=== PATIENT | female | born 1980 | race Caucasian/White ===

== ENCOUNTER 2016-09-23 19:38 | Emergency (ER) | payer MEDICARE, OTHER ==
[2016-09-23 21:02] VITALS: BP 128/78
--- NOTE | 2016-09-23 21:18 | ERNOTE ---
ENT HPI Date of Service: 09/23/16 Presenting Symptoms: other - Sore throat Time Seen by Provider: 09/23/16 21:08 Source: patient, family, RN notes reviewed Exam Limitations: no limitations - Immun/Allergies/Home Medications Immunizations: IMMUNIZATION HX Immunizations Up to Date Yes History of Influenza Vaccine More Information Required Hx Pneumococcal Vaccination Yes Allergies/Adverse Reactions: Allergies Allergy/AdvReac Type Severity Reaction Status Date / Time benzocaine Allergy Verified 05/28/15 07:55 prochlorperazine edisylate Allergy Verified 05/28/15 07:55 [From Compazine] prochlorperazine maleate Allergy Verified 05/28/15 07:55 [From Compazine] promethazine HCl Allergy Verified 05/28/15 07:55 [From Phenergan] Sulfa (Sulfonamide Allergy Verified 05/28/15 07:55 Antibiotics) [Sulfa(Sulfonamide Antibiotics)] Home Medications: HOME MEDICATIONS ALPRAZolam [Xanax] 0.5 mg PO QID PRN 06/27/12 [Last Taken Unknown] Calcitriol 1.25 mg PO DAILY 06/27/12 [Last Taken Unknown] LORazepam [Ativan] 0.5 mg PO QID PRN 06/27/12 [Last Taken Unknown] Levothyroxine Sodium [Levothyroxine (Synthroid)] 200 mcg PO DAILY 06/27/12 [ Last Taken Unknown] Liothyronine Sodium 5 mcg PO DAILY 06/27/12 [Last Taken Unknown] Octreotide Acetate [Sandostatin] 35 units PO DAILY 06/27/12 [Last Taken Unknown] Octreotide Acetate [Sandostatin] 65 units SQ BID 06/27/12 [Last Taken Unknown] Octreotide Acetate,Mi-Spheres [Sandostatin Lar] 30 mg IM Q30D 06/27/12 [Last Taken Unknown] Vandetanib 2 tab PO DAILY 06/27/12 [Last Taken Unknown] Cetirizine HCl [Zyrtec] 5 mg PO BID 08/26/12 [Last Taken Unknown] hydrOXYzine PAMOATE [Vistaril (Hydroxyzine Pamoate)] 25 mg PO TID 08/26/12 [ Last Taken Unknown] Tramadol HCl [Rybix Odt] 100 mg PO HS 04/16/13 [Last Taken Unknown] Calcitriol 1.5 mg IVP DAILY 09/10/13 [Last Taken Unknown] Azithromycin 250 mg PO DAILY #25 ml 09/23/16 [Last Taken Unknown] - History of Present Illness Narrative: 36 y/o female ambulatory to the ED for a sore throat that began last evening. Denies sick contacts but is immunocompromised d/t cancer treatment. Severity: Present: severe ENT Location: Present: throat Prior Treament: Denies: recently seen, currently on antibiotics Review of Systems - Review of Systems Constitutional: Present: chills, weakness, fatigue, malaise EYE: Present: no symptoms reported ENT: Present: ear pain, sore throat. Absent: nose congestion, nasal drainage Respiratory: Present: shortness of breath. Absent: cough, wheezing Cardiology: Absent: chest pain, syncope Gastrointestinal/Abdominal: Present: nausea, eating less, drinking less. Absent : vomiting, diarrhea, abdominal pain Genitourinary: Present: no symptoms reported Musculoskeletal: Absent: muscle pain, neck pain Skin: Absent: rash, lesions Neurological: Present: headache, dizziness/light-headedness Endocrine: Present: no symptoms reported Hematologic/Lymphatic: Present: no symptoms reported Psych: Present: no symptoms reported - Patient's Past Medical History Patient History - Medical: GERD Patient History - Cardiac/Respiratory: No pertinent hx Patient History - Cancer: Breast, Lung, Thyroid Patient History - Surgical Procedures: Cholecystectomy, T & A, Other - Lumpectomy, Thyroidectomy, Radical neck Patient History - Other: Immunosuppresive Tx >3mo - Family History Mother Family History - Medical: No pertinent hx Family History - Cardiac/Respiratory: No pertinent hx - Social History Living Situations: home Smoking Status: Never smoker Alcohol Use: none Drug Use: none - Immunizations Immunizations Up to Date: Yes Hx Pneumococcal Vaccination: Yes History of Influenza Vaccine: No Physical Exam - Physical Exam General Appearance: Present: alert, thin, other - appears uncomfortable but not in acute distress Eye Exam: Normal inspection: bilateral, PERRL: bilateral Ears, Nose, Throat: Present: hearing grossly normal, pharyngeal erythema, pharyngeal swelling, other - tonsils surgically absent. Absent: abnormal TM (R) , abnormal TM (L), nasal congestion, sinus pain/drainage Neck: Present: supple, lymphadenopathy (R), lymphadenopathy (L), tender lateral Respiratory: Present: no respiratory distress, normal breath sounds, no accessory muscle use, lungs clear Cardiovascular/Chest: Present: regular rate, rhythm, no murmur, normal peripheral pulses Neurological Exam: Present: alert, oriented, normal mood/affect, no motor/ sensory deficits Skin Exam: Present: warm/dry, pallor ED Progress - Results and Orders Patient's Lab Results:: I have reviewed the patient's lab results. - Vital Signs Patient's Vital Signs:: I have reviewed the patient's vital signs. Vital Signs: Vital Signs 09/23/16 20:54 Temperature 35.6 C L Pulse Rate 74 Respiratory 20 Rate Blood Pressure 128/78 O2 Sat by Pulse 98 Oximetry - Progress/Reassessment Chief Complaint: Sore Throat Progress:: Unchanged Departure Clinical Impression: Immunocompromised state Acute pharyngitis Qualifiers: Pharyngitis/tonsillitis etiology: unspecified etiology Qualified Code(s): J02.9 - Acute pharyngitis, unspecified - Departure Disposition: Home Follow Up Needed Condition: Stable Instructions: Sore Throat Prescriptions: Azithromycin 250 mg PO DAILY #25 ml
[2016-09-23] MEDS ORDERED: AZITHROMYCIN 200 MG/5 ML SYRINGE PO ONE (21:49)
[2016-09-23] MEDS ORDERED: AZITHROMYCIN 200 MG/5 ML SYRINGE ONE (22:08)
== END 2016-09-23 22:16 | disposition home or self-care (01) ==
LOC: ER 19:38
DX: D84.9 Immunodeficiency, unspecified (principal); J02.9 Acute pharyngitis, unspecified; Z85.3 Personal history of malignant neoplasm of breast; Z85.850 Personal history of malignant neoplasm of thyroid; Z85.118 Personal history of other malignant neoplasm of bronchus and lung